=== PATIENT | male | born 1940 | race Caucasian/White ===

== ENCOUNTER 2017-09-18 15:05 | Observation (INO) ==
[2017-09-18] MEDS ORDERED: ONDANSETRON 4 MG/2 ML VIAL IV STA (15:25)
[2017-09-18] MEDS ORDERED: SODIUM CHLORIDE 0.9% 1,000 ML IV STA (15:25)
[2017-09-18] MEDS ORDERED: ONDANSETRON 4 MG/2 ML VIAL ONE (15:31)
[2017-09-18 15:48] LABS: Basophils % 0.2 % (0.0-0.8); Hematocrit 39.1 VOL% (42.0-52.0); Immature Granulocytes % 0.4 %; Immature Granulocytes Absolute 0.06 #; Lymphocytes # 0.4 10*3/uL (1.4-4.0); Lymphocytes % 2.3 % (21.2-54.2); Mean Corpuscular HGB Conc 33.2 GM/DL (32-36); Mean Corpuscular Hemoglobin 30 PG (27-34); Mean Corpuscular Volume 90.9 FL (87-102); Mean Platelet Volume 10.4 FL (9.6-12.0); Monocytes # 0.8 10*3/uL (0.11-0.8); Monocytes % 5.2 % (1.7-12.7); Neutrophils # 14.3 10*3/uL (1.4-7.4); Neutrophils % 91.9 % (38.7-73.9); Platelet Count 160 T/CUMM (130-400); Red Cell Distribution Width 13.6 % (9.3-17.3); White Blood Count 15.5 T/CUMM (4-12)
[2017-09-18 16:09] LABS: Albumin 3.2 G/DL (3.4-5.0); Bilirubin,Total 0.9 MG/DL (0.2-1.0); Calcium 8.3 MG/DL (8.5-10.1); Osmolality,Calculated 288.5 MOS/KG (273-304); Potassium 4.5 MMOL/L (3.5-5.1); Total Protein 6.9 G/DL (6.4-8.3)
[2017-09-18] MEDS ORDERED: LIDOCAINE 1% 20 ML VIAL MISC INJ STA (17:10)
[2017-09-18 17:44] LABS: Band Neutrophils 5 % (0-10); Lymphocytes 3 % (20-55); Platelet Estimate Normal; Segmented Neutrophils 87 % (50-85); Total Cells Counted 100
[2017-09-18 17:48] LABS: Apearance,Urine Slightly Hazy (Clear); Bilirubin,Urine Negative (Negative); Blood, Urine Negative (Negative); Glucose,Urine (UA) Negative (Negative); Ketones,Urine Negative (Negative); Mucus,Urine Moderate /LPF (Occasional); Nitrite,Urine Negative (Negative); Protein,Urine Negative; RBC,Urine 4 /HPF (0-4); Squamous Epithelial Cell,Urine Occasional /HPF (0-10); Urine Color Yellow (Yellow); Urine Specific Gravity 1.027 (1.001-1.035); Urine Urobilinogen < 2.0 EU/DL (0.2-1.0); WBC,Urine 4 /HPF (0-6)
[2017-09-18] MEDS ORDERED: ACETAMINOPHEN 325 MG TABLET PO PRN (18:53)
[2017-09-18] MEDS ORDERED: ONDANSETRON 4 MG/2 ML VIAL IV PRN (18:53)
[2017-09-18] MEDS ORDERED: FUROSEMIDE 40 MG TABLET PO PRN (19:08)
[2017-09-18] MEDS ORDERED: ALBUTEROL 2.5 MG/3 ML NEB RESP TX PRN (19:15)
[2017-09-18] MEDS: CIPROFLOXACIN INJ 400 MG in PREMIX 1 EACH IV SCH (20:42)
[2017-09-18] MEDS: SODIUM CHLORIDE 0.9% 1,000 ML IV SCH (20:42)
[2017-09-18] MEDS: SODIUM CHLORIDE 0.65% NASAL SPRAY 45 ML BOTTLE BOTH NARES SCH (20:43)
[2017-09-18] MEDS: BENZONATATE 100 MG CAPSULE PO SCH (20:43)
[2017-09-18] MEDS: TAMSULOSIN 0.4 MG CAPSULE PO SCH (20:43)
[2017-09-18] MEDS: ROSUVASTATIN 10 MG TABLET PO SCH (20:43)
[2017-09-18] MEDS: RIVAROXABAN 20 MG TABLET PO SCH (20:43)
[2017-09-18] MEDS: PANTOPRAZOLE 40 MG TABLET PO SCH (20:43)
[2017-09-18] MEDS: SERTRALINE 100 MG TABLET PO SCH (20:43)
[2017-09-18] MEDS: ZALEPLON 5 MG CAPSULE PO SCH (20:43)
[2017-09-18] MEDS: FLECAINIDE 50 MG TABLET PO SCH (20:44)
[2017-09-18] MEDS: metroNIDAZOLE INJ 500 MG in PREMIX 1 EACH IV SCH (22:49)
[2017-09-19 06:32] LABS: Basophils % 0.2 % (0.0-0.8); Eosinophils # 0.2 10*3/uL (0.0-0.87); Eosinophils % 1.9 % (0.00-10.9); Hematocrit 33.6 VOL% (42.0-52.0); Hemoglobin 11.3 GM/DL (14.0-18.0); Immature Granulocytes % 0.2 %; Immature Granulocytes Absolute 0.02 #; Lymphocytes # 1.1 10*3/uL (1.4-4.0); Lymphocytes % 11.5 % (21.2-54.2); Mean Corpuscular HGB Conc 33.6 GM/DL (32-36); Mean Corpuscular Hemoglobin 30 PG (27-34); Mean Corpuscular Volume 90.1 FL (87-102); Mean Platelet Volume 11.1 FL (9.6-12.0); Monocytes # 0.8 10*3/uL (0.11-0.8); Monocytes % 8.6 % (1.7-12.7); Neutrophils # 7.2 10*3/uL (1.4-7.4); Neutrophils % 77.6 % (38.7-73.9); Platelet Count 144 T/CUMM (130-400); Red Blood Count 3.73 MC/CUMM (3.8-5.5); Red Cell Distribution Width 13.6 % (9.3-17.3); White Blood Count 9.3 T/CUMM (4-12)
[2017-09-19 06:59] LABS: Band Neutrophils 1 % (0-10); Eosinophils 2 % (0-10); Lymphocytes 17 % (20-55); Microcytosis Slight; Segmented Neutrophils 75 % (50-85); Total Cells Counted 100
[2017-09-19 07:00] LABS: Ovalocytes Slight; Platelet Estimate Adequate
[2017-09-19 07:10] LABS: Albumin 2.9 G/DL (3.4-5.0); Bilirubin,Total 1.4 MG/DL (0.2-1.0); Calcium 7.5 MG/DL (8.5-10.1); Osmolality,Calculated 289.3 MOS/KG (273-304); Potassium 3.6 MMOL/L (3.5-5.1); Total Protein 6.1 G/DL (6.4-8.3)
[2017-09-19] MEDS ORDERED: FUROSEMIDE 20 MG/2 ML VIAL IV SCH (09:00)
[2017-09-19] MEDS: metroNIDAZOLE INJ 500 MG in PREMIX 1 EACH IV SCH ×2 (09:36→20:11)
[2017-09-19] MEDS: CIPROFLOXACIN INJ 400 MG in PREMIX 1 EACH IV SCH (09:36)
[2017-09-19] MEDS: SODIUM CHLORIDE 0.9% 1,000 ML IV SCH (09:37)
[2017-09-19] MEDS: CHOLECALCIFEROL 1,000 UNIT TABLET PO SCH (09:38)
[2017-09-19] MEDS: DIGOXIN 0.25 MG TABLET PO SCH (09:38)
[2017-09-19] MEDS: GABAPENTIN 600 MG TABLET PO SCH (09:38)
[2017-09-19] MEDS: SPIRONOLACTONE 25 MG TABLET PO SCH (09:38)
[2017-09-19] MEDS: CALCIUM (CARBONATE) 600 MG TABLET PO SCH (09:39)
[2017-09-19] MEDS: MULTIVITAMIN (CENTRUM) TABLET PO SCH (09:39)
[2017-09-19] MEDS: CYANOCOBALAMIN 500 MCG TABLET PO SCH (09:39)
[2017-09-19] MEDS: PANTOPRAZOLE 40 MG TABLET PO SCH ×2 (09:39→20:13)
[2017-09-19] MEDS: POTASSIUM CHLORIDE 10 MEQ TABLET PO SCH (09:39)
[2017-09-19] MEDS: BENZONATATE 100 MG CAPSULE PO SCH ×2 (09:39→20:13)
[2017-09-19] MEDS: TAMSULOSIN 0.4 MG CAPSULE PO SCH ×2 (09:39→20:12)
[2017-09-19] MEDS: SODIUM CHLORIDE 0.65% NASAL SPRAY 45 ML BOTTLE BOTH NARES SCH ×2 (09:40→20:13)
[2017-09-19] MEDS: FINASTERIDE 5 MG TABLET PO SCH (09:40)
[2017-09-19] MEDS: FLECAINIDE 50 MG TABLET PO SCH ×2 (09:40→20:12)
[2017-09-19] MEDS: ASCORBIC ACID 500 MG TABLET PO SCH (09:40)
[2017-09-19] MEDS: OMEGA 3 ACID ETHYL ESTERS 1 GM CAPSULE PO SCH (09:40)
[2017-09-19] MEDS ORDERED: GABAPENTIN 600 MG TABLET PO SCH (19:00)
[2017-09-19] MEDS: SERTRALINE 100 MG TABLET PO SCH (20:11)
[2017-09-19] MEDS: ZALEPLON 5 MG CAPSULE PO SCH (20:12)
[2017-09-19] MEDS: ROSUVASTATIN 10 MG TABLET PO SCH (20:12)
[2017-09-19] MEDS: RIVAROXABAN 20 MG TABLET PO SCH (20:13)
[2017-09-19] MEDS: CHOLESTYRAMINE 4 GM PACK PO SCH (20:13)
[2017-09-20 05:25] LABS: Basophils % 0.4 % (0.0-0.8); Eosinophils # 0.6 10*3/uL (0.0-0.87); Hematocrit 32.7 VOL% (42.0-52.0); Hemoglobin 10.8 GM/DL (14.0-18.0); Immature Granulocytes % 0.6 %; Immature Granulocytes Absolute 0.04 #; Lymphocytes % 27.2 % (21.2-54.2); Mean Corpuscular Hemoglobin 30 PG (27-34); Mean Corpuscular Volume 90.3 FL (87-102); Mean Platelet Volume 10.2 FL (9.6-12.0); Monocytes # 0.9 10*3/uL (0.11-0.8); Monocytes % 12.7 % (1.7-12.7); Neutrophils # 3.7 10*3/uL (1.4-7.4); Neutrophils % 51.1 % (38.7-73.9); Platelet Count 128 T/CUMM (130-400); Red Blood Count 3.62 MC/CUMM (3.8-5.5); Red Cell Distribution Width 13.7 % (9.3-17.3); White Blood Count 7.2 T/CUMM (4-12)
[2017-09-20 05:54] LABS: Albumin 2.7 G/DL (3.4-5.0); Bilirubin,Total 0.9 MG/DL (0.2-1.0); Calcium 7.7 MG/DL (8.5-10.1); Osmolality,Calculated 287.8 MOS/KG (273-304); Potassium 3.6 MMOL/L (3.5-5.1); Total Protein 5.7 G/DL (6.4-8.3)
[2017-09-20] MEDS: OMEGA 3 ACID ETHYL ESTERS 1 GM CAPSULE PO SCH (08:57)
[2017-09-20] MEDS: CHOLECALCIFEROL 1,000 UNIT TABLET PO SCH (08:58)
[2017-09-20] MEDS: DIGOXIN 0.25 MG TABLET PO SCH (08:58)
[2017-09-20] MEDS ORDERED: FUROSEMIDE 40 MG TABLET PO SCH (09:00)
[2017-09-20] MEDS: FLECAINIDE 50 MG TABLET PO SCH (09:00)
[2017-09-20] MEDS: GABAPENTIN 600 MG TABLET PO SCH (09:00)
[2017-09-20] MEDS: CALCIUM (CARBONATE) 600 MG TABLET PO SCH (09:01)
[2017-09-20] MEDS: MULTIVITAMIN (CENTRUM) TABLET PO SCH (09:01)
[2017-09-20] MEDS: FINASTERIDE 5 MG TABLET PO SCH (09:01)
[2017-09-20] MEDS: POTASSIUM CHLORIDE 10 MEQ TABLET PO SCH (09:01)
[2017-09-20] MEDS: ASCORBIC ACID 500 MG TABLET PO SCH (09:01)
[2017-09-20] MEDS: PANTOPRAZOLE 40 MG TABLET PO SCH (09:01)
[2017-09-20] MEDS: TAMSULOSIN 0.4 MG CAPSULE PO SCH (09:02)
[2017-09-20] MEDS: SPIRONOLACTONE 25 MG TABLET PO SCH (09:02)
[2017-09-20] MEDS: CYANOCOBALAMIN 500 MCG TABLET PO SCH (09:02)
[2017-09-20] MEDS: metroNIDAZOLE INJ 500 MG in PREMIX 1 EACH IV SCH (09:08)
[2017-09-20] MEDS: SODIUM CHLORIDE 0.65% NASAL SPRAY 45 ML BOTTLE BOTH NARES SCH (09:08)
[2017-09-20] MEDS: BENZONATATE 100 MG CAPSULE PO SCH (09:08)
[2017-09-20] MEDS: CHOLESTYRAMINE 4 GM PACK PO SCH (09:08)
[2017-09-20 11:41] VITALS: BP 103/65
== END 2017-09-20 13:59 | disposition home or self-care (01) ==
LOC: N.EDINP 15:05 → N.ED 15:05 → N.5E 18:43
PROVIDERS: ADMIT Internal Medicine; ATTEND Internal Medicine

== ENCOUNTER 2018-05-13 08:59 | Inpatient (IN) ==
[2018-05-13] MEDS ORDERED: ONDANSETRON 4 MG/2 ML VIAL IV STA (09:29)
[2018-05-13 09:44] LABS: Basophils % 0.4 % (0.0-0.8); Eosinophils # 0.5 10*3/uL (0.0-0.87); Eosinophils % 4.7 % (0.00-10.9); Hematocrit 34.9 VOL% (42.0-52.0); Hemoglobin 11.4 GM/DL (14.0-18.0); Immature Granulocytes % 0.3 %; Immature Granulocytes Absolute 0.03 #; Lymphocytes # 1.1 10*3/uL (1.4-4.0); Lymphocytes % 11.5 % (21.2-54.2); Mean Corpuscular HGB Conc 32.7 GM/DL (32-36); Mean Corpuscular Hemoglobin 30 PG (27-34); Mean Corpuscular Volume 92.1 FL (87-102); Mean Platelet Volume 10.3 FL (9.6-12.0); Monocytes # 0.6 10*3/uL (0.11-0.8); Monocytes % 6.4 % (1.7-12.7); Neutrophils # 7.5 10*3/uL (1.4-7.4); Neutrophils % 76.7 % (38.7-73.9); Platelet Count 156 T/CUMM (130-400); Red Blood Count 3.79 MC/CUMM (3.8-5.5); Red Cell Distribution Width 14.1 % (9.3-17.3); White Blood Count 9.8 T/CUMM (4-12)
[2018-05-13 10:23] LABS: Albumin 3.2 G/DL (3.4-5.0); Bilirubin,Total 0.8 MG/DL (0.2-1.0); Calcium 8.1 MG/DL (8.5-10.1); Osmolality,Calculated 284.4 MOS/KG (273-304); Potassium 4.4 MMOL/L (3.5-5.1); Total Protein 6.7 G/DL (6.4-8.3)
[2018-05-13 10:35] LABS: Apearance,Urine CLEAR (Clear); Bilirubin,Urine Negative (Negative); Blood, Urine Negative (Negative); Glucose,Urine (UA) Negative (Negative); Ketones,Urine Negative (Negative); Mucus,Urine Occasional /LPF (Occasional); Nitrite,Urine Negative (Negative); Protein,Urine Negative; RBC,Urine 3 /HPF (0-4); Squamous Epithelial Cell,Urine Occasional /HPF (0-10); Urine Color Yellow (Yellow); Urine Specific Gravity 1.025 (1.001-1.035); Urine Urobilinogen < 2.0 EU/DL (0.2-1.0); WBC,Urine 1 /HPF (0-6)
[2018-05-13 16:11] LABS: INR 1.2; PT Patient Result 12.6 SECS; Partial Thromboplastin Time 30.3 SECS (0-40)
[2018-05-13] MEDS ORDERED: ONDANSETRON 4 MG/2 ML VIAL IV PRN (16:22)
[2018-05-13] MEDS ORDERED: ACETAMINOPHEN 325 MG TABLET PO PRN (16:22)
[2018-05-13] MEDS ORDERED: SODIUM CHLORIDE 0.65% NASAL SPRAY 45 ML BOTTLE BOTH NARES PRN (16:42)
[2018-05-13] MEDS ORDERED: BENZONATATE 100 MG CAPSULE PO PRN (16:42)
[2018-05-13] MEDS ORDERED: ALBUTEROL 2.5 MG/3 ML NEB RESP TX PRN (16:42)
[2018-05-13] MEDS: cefOXitin 2,000 MG in SYRINGE 1 EACH IV SCH ×2 (17:39→22:40)
[2018-05-13] MEDS: METOPROLOL SUCCINATE XL 50 MG TABLET PO SCH (17:39)
[2018-05-13] MEDS: ENOXAPARIN 100 MG/ML SYRINGE SUBCUT SCH (17:39)
[2018-05-13] MEDS: SODIUM CHLORIDE 0.45% 1,000 ML IV SCH (17:43)
[2018-05-13] MEDS: MONTELUKAST 10 MG TABLET PO SCH (20:48)
[2018-05-13] MEDS: DILTIAZEM 60 MG TABLET PO SCH (20:49)
[2018-05-13] MEDS: GABAPENTIN 600 MG TABLET PO SCH (20:49)
[2018-05-13] MEDS: ROSUVASTATIN 10 MG TABLET PO SCH (20:49)
[2018-05-13] MEDS: ZALEPLON 5 MG CAPSULE PO SCH (20:50)
[2018-05-13] MEDS: SERTRALINE 100 MG TABLET PO SCH (20:56)
[2018-05-13] MEDS: TAMSULOSIN 0.4 MG CAPSULE PO SCH (20:56)
[2018-05-13] MEDS ORDERED: FLECAINIDE 50 MG TABLET PO SCH (21:00)
[2018-05-13] MEDS ORDERED: DILTIAZEM 60 MG TABLET PO SCH (21:00)
[2018-05-14] MEDS: SODIUM CHLORIDE 0.45% 1,000 ML IV SCH ×2 (00:25→15:45)
[2018-05-14 04:33] LABS: Basophils % 0.5 % (0.0-0.8); Eosinophils # 0.6 10*3/uL (0.0-0.87); Eosinophils % 7.5 % (0.00-10.9); Hematocrit 33.8 VOL% (42.0-52.0); Hemoglobin 10.8 GM/DL (14.0-18.0); Immature Granulocytes % 0.1 %; Immature Granulocytes Absolute 0.01 #; Lymphocytes # 1.8 10*3/uL (1.4-4.0); Lymphocytes % 22.5 % (21.2-54.2); Mean Corpuscular Hemoglobin 30 PG (27-34); Mean Corpuscular Volume 93.6 FL (87-102); Monocytes # 0.6 10*3/uL (0.11-0.8); Monocytes % 7.5 % (1.7-12.7); Neutrophils % 61.9 % (38.7-73.9); Platelet Count 145 T/CUMM (130-400); Red Blood Count 3.61 MC/CUMM (3.8-5.5)
[2018-05-14 05:03] LABS: Albumin 2.9 G/DL (3.4-5.0); Bilirubin,Total 1.3 MG/DL (0.2-1.0); Calcium 7.9 MG/DL (8.5-10.1); Osmolality,Calculated 287.3 MOS/KG (273-304); Potassium 4.2 MMOL/L (3.5-5.1); Total Protein 6.6 G/DL (6.4-8.3)
[2018-05-14] MEDS: cefOXitin 2,000 MG in SYRINGE 1 EACH IV SCH ×4 (05:42→23:22)
[2018-05-14] MEDS: ENOXAPARIN 100 MG/ML SYRINGE SUBCUT SCH ×2 (05:46→17:17)
[2018-05-14] MEDS: DILTIAZEM 60 MG TABLET PO SCH ×3 (09:00→20:42)
[2018-05-14] MEDS: CALCIUM (CARBONATE) 600 MG TABLET PO SCH ×2 (09:00→16:02)
[2018-05-14] MEDS: SPIRONOLACTONE 25 MG TABLET PO SCH ×2 (09:00→15:58)
[2018-05-14] MEDS: TAMSULOSIN 0.4 MG CAPSULE PO SCH ×2 (09:00→20:41)
[2018-05-14] MEDS: GABAPENTIN 300 MG CAPSULE PO SCH ×2 (09:00→16:04)
[2018-05-14] MEDS: METOPROLOL SUCCINATE XL 50 MG TABLET PO SCH ×2 (09:00→16:03)
[2018-05-14] MEDS: POTASSIUM CHLORIDE 10 MEQ TABLET PO SCH ×2 (09:00→16:05)
[2018-05-14] MEDS: DIGOXIN 0.25 MG TABLET PO SCH ×2 (09:00→16:05)
[2018-05-14] MEDS: PANTOPRAZOLE 40 MG TABLET PO SCH ×2 (09:00→16:03)
[2018-05-14] MEDS: FUROSEMIDE 40 MG TABLET PO SCH ×2 (09:00→16:04)
[2018-05-14] MEDS: OMEGA 3 ACID ETHYL ESTERS 1 GM CAPSULE PO SCH ×2 (09:00→16:04)
[2018-05-14] MEDS: FINASTERIDE 5 MG TABLET PO SCH ×2 (09:00→16:03)
[2018-05-14] MEDS: SERTRALINE 100 MG TABLET PO SCH (20:41)
[2018-05-14] MEDS: GABAPENTIN 600 MG TABLET PO SCH (20:41)
[2018-05-14] MEDS: ROSUVASTATIN 10 MG TABLET PO SCH (20:41)
[2018-05-14] MEDS: ZALEPLON 5 MG CAPSULE PO SCH (20:42)
[2018-05-14] MEDS: MONTELUKAST 10 MG TABLET PO SCH (20:42)
[2018-05-15] MEDS: SODIUM CHLORIDE 0.45% 1,000 ML IV SCH ×2 (03:26→18:17)
[2018-05-15] MEDS: ENOXAPARIN 100 MG/ML SYRINGE SUBCUT SCH (06:17)
[2018-05-15] MEDS: cefOXitin 2,000 MG in SYRINGE 1 EACH IV SCH ×3 (06:18→18:26)
[2018-05-15] MEDS: DILTIAZEM 60 MG TABLET PO SCH ×3 (09:00→21:44)
[2018-05-15] MEDS: TAMSULOSIN 0.4 MG CAPSULE PO SCH ×2 (09:00→21:44)
[2018-05-15] MEDS: SPIRONOLACTONE 25 MG TABLET PO SCH (09:00)
[2018-05-15] MEDS: DIGOXIN 0.25 MG TABLET PO SCH (09:00)
[2018-05-15] MEDS: FINASTERIDE 5 MG TABLET PO SCH (09:00)
[2018-05-15] MEDS: CALCIUM (CARBONATE) 600 MG TABLET PO SCH (09:00)
[2018-05-15] MEDS: FUROSEMIDE 40 MG TABLET PO SCH (09:00)
[2018-05-15] MEDS: OMEGA 3 ACID ETHYL ESTERS 1 GM CAPSULE PO SCH (09:00)
[2018-05-15] MEDS: GABAPENTIN 300 MG CAPSULE PO SCH (09:00)
[2018-05-15 09:40] LABS: Bilirubin,Direct 0.18 MG/DL (0.0-0.20); Bilirubin,Indirect 0.6 MG/DL (0.0-1.0); Bilirubin,Total 0.8 MG/DL (0.2-1.0)
[2018-05-15] MEDS ORDERED: LIDOCAINE 1%/EPI INJ 20 ML VIAL ONE (13:03)
[2018-05-15] MEDS ORDERED: TISSUE ADHESIVE 1 EACH APPLICATOR TOP ONE (13:03)
[2018-05-15] MEDS ORDERED: INFLUENZA VIRUS VACCINE 0.5 ML SYRINGE IM ONE (13:07)
[2018-05-15] MEDS: METOPROLOL SUCCINATE XL 50 MG TABLET PO SCH (13:55)
[2018-05-15] MEDS: PANTOPRAZOLE 40 MG TABLET PO SCH (13:55)
[2018-05-15] MEDS: POTASSIUM CHLORIDE 10 MEQ TABLET PO SCH (13:55)
[2018-05-15] MEDS ORDERED: LEVALBUTEROL 1.25 MG/3 ML NEB RESP TX ONE ×2 (15:18→15:24)
[2018-05-15] MEDS ORDERED: METOPROLOL TARTRATE 5 MG/5 ML VIAL IV ONE (15:23)
[2018-05-15] MEDS ORDERED: PROPOFOL 200 MG/20 ML VIAL IV ONE (15:23)
[2018-05-15] MEDS ORDERED: SEVOFLURANE 1 UNIT/15 MINUTE INH ONE (15:23)
[2018-05-15] MEDS ORDERED: ONDANSETRON 4 MG/2 ML VIAL ONE (15:23)
[2018-05-15] MEDS ORDERED: DEXAMETHASONE 10 MG/1 ML VIAL ONE (15:23)
[2018-05-15] MEDS ORDERED: GLYCOPYRROLATE 0.4 MG/2 ML VIAL ONE (15:23)
[2018-05-15] MEDS ORDERED: SUCCINYLCHOLINE 200 MG/10 ML VIAL ONE (15:24)
[2018-05-15] MEDS ORDERED: ROCURONIUM 100 MG/10 ML VIAL IV ONE (15:24)
[2018-05-15] MEDS ORDERED: NEOSTIGMINE 10 MG/10 ML VIAL ONE (15:24)
[2018-05-15] MEDS: HYDROmorphone 2 MG/1 ML VIAL IV PRN ×4 (15:40→16:56)
[2018-05-15] MEDS ORDERED: HYDROmorphone 2 MG/1 ML VIAL ONE (15:40)
[2018-05-15] MEDS: MONTELUKAST 10 MG TABLET PO SCH (21:41)
[2018-05-15] MEDS: ROSUVASTATIN 10 MG TABLET PO SCH (21:43)
[2018-05-15] MEDS: SERTRALINE 100 MG TABLET PO SCH (21:44)
[2018-05-15] MEDS: GABAPENTIN 600 MG TABLET PO SCH (21:44)
[2018-05-15] MEDS: ZALEPLON 5 MG CAPSULE PO SCH (21:46)
[2018-05-16] MEDS: cefOXitin 2,000 MG in SYRINGE 1 EACH IV SCH ×4 (02:35→21:22)
[2018-05-16 04:48] LABS: Hematocrit 34.3 VOL% (42.0-52.0); Hemoglobin 11.3 GM/DL (14.0-18.0); Immature Granulocytes % 0.3 %; Immature Granulocytes Absolute 0.03 #; Lymphocytes # 0.6 10*3/uL (1.4-4.0); Lymphocytes % 6.6 % (21.2-54.2); Mean Corpuscular HGB Conc 32.9 GM/DL (32-36); Mean Corpuscular Hemoglobin 30 PG (27-34); Mean Corpuscular Volume 91.2 FL (87-102); Mean Platelet Volume 10.5 FL (9.6-12.0); Monocytes # 0.2 10*3/uL (0.11-0.8); Monocytes % 1.7 % (1.7-12.7); Neutrophils # 8.3 10*3/uL (1.4-7.4); Neutrophils % 91.4 % (38.7-73.9); Platelet Count 161 T/CUMM (130-400); Red Blood Count 3.76 MC/CUMM (3.8-5.5); Red Cell Distribution Width 13.9 % (9.3-17.3); White Blood Count 9.1 T/CUMM (4-12)
[2018-05-16 05:13] LABS: Calcium 8.1 MG/DL (8.5-10.1); Potassium 4.6 MMOL/L (3.5-5.1)
[2018-05-16 05:39] LABS: Hypochromasia 1+; Lymphocytes 10 % (20-55); Ovalocytes Slight; Platelet Estimate Adequate; Segmented Neutrophils 89 % (50-85); Total Cells Counted 100
[2018-05-16] MEDS: SODIUM CHLORIDE 0.45% 1,000 ML IV SCH (06:24)
[2018-05-16] MEDS ORDERED: LACTATED RINGERS 500 ML IV ONE (08:23)
[2018-05-16] MEDS ORDERED: INDOMETHACIN SUPP 50 MG SUPP RECTAL ONE (08:24)
[2018-05-16] MEDS: METOPROLOL SUCCINATE XL 50 MG TABLET PO SCH ×2 (08:48→21:28)
[2018-05-16] MEDS: DILTIAZEM 60 MG TABLET PO SCH ×3 (08:48→21:28)
[2018-05-16] MEDS: DIGOXIN 0.25 MG TABLET PO SCH (08:49)
[2018-05-16 09:04] LABS: PT Patient Result 11.1 SECS
[2018-05-16] MEDS: TAMSULOSIN 0.4 MG CAPSULE PO SCH ×2 (09:44→21:27)
[2018-05-16] MEDS: CALCIUM (CARBONATE) 600 MG TABLET PO SCH (09:44)
[2018-05-16] MEDS: ASPIRIN EC 81 MG TABLET PO SCH (09:44)
[2018-05-16] MEDS: SPIRONOLACTONE 25 MG TABLET PO SCH (09:44)
[2018-05-16] MEDS: POTASSIUM CHLORIDE 10 MEQ TABLET PO SCH (09:45)
[2018-05-16] MEDS: OMEGA 3 ACID ETHYL ESTERS 1 GM CAPSULE PO SCH (09:45)
[2018-05-16] MEDS: GABAPENTIN 300 MG CAPSULE PO SCH (09:45)
[2018-05-16] MEDS: PANTOPRAZOLE 40 MG TABLET PO SCH (09:46)
[2018-05-16] MEDS: FINASTERIDE 5 MG TABLET PO SCH (09:46)
[2018-05-16] MEDS ORDERED: fentaNYL 100 MCG/2 ML VIAL ONE (10:37)
[2018-05-16] MEDS ORDERED: PROPOFOL 200 MG/20 ML VIAL IV ONE (10:58)
[2018-05-16] MEDS ORDERED: ROCURONIUM 100 MG/10 ML VIAL IV ONE (10:58)
[2018-05-16] MEDS ORDERED: SUCCINYLCHOLINE 200 MG/10 ML VIAL ONE (10:58)
[2018-05-16] MEDS ORDERED: LIDOCAINE 100 MG/5 ML SYRINGE ONE (10:58)
[2018-05-16] MEDS ORDERED: SEVOFLURANE 1 UNIT/15 MINUTE INH ONE (13:34)
[2018-05-16] MEDS ORDERED: RIVAROXABAN 20 MG TABLET PO SCH ×2 (17:00)
[2018-05-16] MEDS: MONTELUKAST 10 MG TABLET PO SCH (21:27)
[2018-05-16] MEDS: GABAPENTIN 600 MG TABLET PO SCH (21:27)
[2018-05-16] MEDS: ROSUVASTATIN 10 MG TABLET PO SCH (21:28)
[2018-05-16] MEDS: ZALEPLON 5 MG CAPSULE PO SCH (21:28)
[2018-05-16] MEDS: SERTRALINE 100 MG TABLET PO SCH (21:28)
[2018-05-17] MEDS: cefOXitin 2,000 MG in SYRINGE 1 EACH IV SCH ×2 (03:34→08:42)
[2018-05-17] MEDS: SODIUM CHLORIDE 0.45% 1,000 ML IV SCH ×2 (03:36→03:37)
[2018-05-17 06:07] LABS: Basophils % 0.1 % (0.0-0.8); Eosinophils % 0.2 % (0.00-10.9); Hematocrit 33.2 VOL% (42.0-52.0); Hemoglobin 10.6 GM/DL (14.0-18.0); Immature Granulocytes % 0.3 %; Immature Granulocytes Absolute 0.03 #; Lymphocytes # 1.1 10*3/uL (1.4-4.0); Lymphocytes % 9.6 % (21.2-54.2); Mean Corpuscular HGB Conc 31.9 GM/DL (32-36); Mean Corpuscular Hemoglobin 30 PG (27-34); Mean Corpuscular Volume 93.8 FL (87-102); Mean Platelet Volume 11.1 FL (9.6-12.0); Monocytes % 8.3 % (1.7-12.7); Neutrophils # 9.7 10*3/uL (1.4-7.4); Neutrophils % 81.5 % (38.7-73.9); Platelet Count 166 T/CUMM (130-400); Red Blood Count 3.54 MC/CUMM (3.8-5.5); Red Cell Distribution Width 14.1 % (9.3-17.3); White Blood Count 11.9 T/CUMM (4-12)
[2018-05-17 06:20] LABS: Albumin 2.9 G/DL (3.4-5.0); Bilirubin,Total 1.7 MG/DL (0.2-1.0); Calcium 7.9 MG/DL (8.5-10.1); Osmolality,Calculated 287.1 MOS/KG (273-304); Potassium 4.2 MMOL/L (3.5-5.1); Total Protein 6.6 G/DL (6.4-8.3)
[2018-05-17] MEDS: DIGOXIN 0.25 MG TABLET PO SCH (08:39)
[2018-05-17] MEDS: DILTIAZEM 60 MG TABLET PO SCH (08:39)
[2018-05-17] MEDS: SPIRONOLACTONE 25 MG TABLET PO SCH (08:40)
[2018-05-17] MEDS: ASPIRIN EC 81 MG TABLET PO SCH (08:40)
[2018-05-17] MEDS: FINASTERIDE 5 MG TABLET PO SCH (08:40)
[2018-05-17] MEDS: METOPROLOL SUCCINATE XL 50 MG TABLET PO SCH (08:41)
[2018-05-17] MEDS: PANTOPRAZOLE 40 MG TABLET PO SCH (08:41)
[2018-05-17] MEDS: OMEGA 3 ACID ETHYL ESTERS 1 GM CAPSULE PO SCH (08:41)
[2018-05-17] MEDS: GABAPENTIN 300 MG CAPSULE PO SCH (08:41)
[2018-05-17] MEDS: POTASSIUM CHLORIDE 10 MEQ TABLET PO SCH (08:41)
[2018-05-17] MEDS: TAMSULOSIN 0.4 MG CAPSULE PO SCH (08:41)
[2018-05-17] MEDS: CALCIUM (CARBONATE) 600 MG TABLET PO SCH (08:41)
[2018-05-17 10:32] VITALS: BP 97/53
== END 2018-05-17 11:28 | disposition home or self-care (01) | DRG 418 ==
LOC: N.EDINP 08:59 → N.ED 08:59 → N.3E 16:07
PROVIDERS: ADMIT Surgery; ATTEND Surgery
PROC: LAPCHOL (2018-05-15 14:16)
PROC: ERCPWSP (ICD-10-PCS; 2018-05-16 10:00)

== ENCOUNTER 2018-05-22 16:56 | Inpatient (IN) ==
[2018-05-22 18:10] LABS: Apearance,Urine CLEAR (Clear); Blood, Urine Negative (Negative); Glucose,Urine (UA) Negative (Negative); Ketones,Urine Negative (Negative); Nitrite,Urine Negative (Negative); Protein,Urine Negative; RBC,Urine 2 /HPF (0-4); Squamous Epithelial Cell,Urine Occasional /HPF (0-10); Urine Specific Gravity 1.028 (1.001-1.035); WBC,Urine 3 /HPF (0-6)
[2018-05-22] MEDS ORDERED: SODIUM CHLORIDE 0.9% 500 ML IV STA (18:12)
[2018-05-22 18:16] LABS: Bilirubin,Urine Small mg/dL (Negative); Urine Color Yellow (Yellow)
[2018-05-22 18:21] LABS: Lactic Acid 0.9 MMOL/L (0.4-2.0)
[2018-05-22 18:22] LABS: Albumin 2.8 G/DL (3.4-5.0); Basophils % 0.1 % (0.0-0.8); Bilirubin,Total 2.8 MG/DL (0.2-1.0); Calcium 8.6 MG/DL (8.5-10.1); Eosinophils % 0.2 % (0.00-10.9); Hematocrit 33.5 VOL% (42.0-52.0); Immature Granulocytes % 0.3 %; Immature Granulocytes Absolute 0.05 #; Lymphocytes # 0.4 10*3/uL (1.4-4.0); Lymphocytes % 2.7 % (21.2-54.2); Mean Corpuscular HGB Conc 32.8 GM/DL (32-36); Mean Corpuscular Hemoglobin 30 PG (27-34); Mean Corpuscular Volume 91.3 FL (87-102); Mean Platelet Volume 10.4 FL (9.6-12.0); Monocytes # 0.9 10*3/uL (0.11-0.8); Monocytes % 5.7 % (1.7-12.7); Neutrophils # 14.1 10*3/uL (1.4-7.4); Platelet Count 171 T/CUMM (130-400); Potassium 4.3 MMOL/L (3.5-5.1); Red Blood Count 3.67 MC/CUMM (3.8-5.5); Total Protein 7.1 G/DL (6.4-8.3); White Blood Count 15.5 T/CUMM (4-12)
[2018-05-22 18:24] LABS: Lymphocytes 5 % (20-55); Segmented Neutrophils 93 % (50-85); Total Cells Counted 100
[2018-05-22 18:25] LABS: Platelet Estimate Adequate
[2018-05-22] MEDS ORDERED: metroNIDAZOLE INJ 500 MG in PREMIX 1 EACH IV STA (20:08)
[2018-05-22] MEDS ORDERED: LEVOFLOXACIN INJ 500 MG in PREMIX 1 EACH IV STA (20:08)
[2018-05-22] MEDS ORDERED: ONDANSETRON 4 MG/2 ML VIAL IV PRN (20:29)
[2018-05-22] MEDS: SODIUM CHLORIDE 0.45% 1,000 ML IV SCH (23:41)
[2018-05-23] MEDS: metroNIDAZOLE INJ 500 MG in PREMIX 1 EACH IV SCH ×5 (02:08→20:08)
[2018-05-23 05:55] LABS: Albumin 2.6 G/DL (3.4-5.0); Bilirubin,Total 2.4 MG/DL (0.2-1.0); Calcium 8.1 MG/DL (8.5-10.1); Osmolality,Calculated 273.1 MOS/KG (273-304); Total Protein 6.2 G/DL (6.4-8.3)
[2018-05-23] MEDS ORDERED: BENZONATATE 100 MG CAPSULE PO PRN (06:05)
[2018-05-23] MEDS ORDERED: ALBUTEROL 2.5 MG/3 ML NEB RESP TX PRN (06:05)
[2018-05-23] MEDS: SODIUM CHLORIDE 0.45% 1,000 ML IV SCH (06:22)
[2018-05-23 07:10] LABS: Basophils % 0.2 % (0.0-0.8); Eosinophils # 0.2 10*3/uL (0.0-0.87); Eosinophils % 1.7 % (0.00-10.9); Hematocrit 30.7 VOL% (42.0-52.0); Immature Granulocytes % 0.6 %; Immature Granulocytes Absolute 0.05 #; Lymphocytes # 0.6 10*3/uL (1.4-4.0); Lymphocytes % 6.7 % (21.2-54.2); Mean Corpuscular HGB Conc 32.6 GM/DL (32-36); Mean Corpuscular Hemoglobin 30 PG (27-34); Mean Corpuscular Volume 91.4 FL (87-102); Mean Platelet Volume 10.9 FL (9.6-12.0); Monocytes # 0.6 10*3/uL (0.11-0.8); Monocytes % 6.5 % (1.7-12.7); Neutrophils # 7.6 10*3/uL (1.4-7.4); Neutrophils % 84.3 % (38.7-73.9); Platelet Count 138 T/CUMM (130-400); Red Blood Count 3.36 MC/CUMM (3.8-5.5); Red Cell Distribution Width 14.2 % (9.3-17.3); White Blood Count 9.1 T/CUMM (4-12)
[2018-05-23] MEDS ORDERED: NON-FORMULARY MEDICATION (Potassium [Potassium] 99 MG) PO SCH (09:00)
[2018-05-23] MEDS: FLECAINIDE 50 MG TABLET PO SCH ×2 (09:32→20:09)
[2018-05-23] MEDS: DIGOXIN 0.25 MG TABLET PO SCH (09:33)
[2018-05-23] MEDS: PANTOPRAZOLE 40 MG TABLET PO SCH (09:33)
[2018-05-23] MEDS: GABAPENTIN 300 MG CAPSULE PO SCH (09:33)
[2018-05-23] MEDS: DILTIAZEM 60 MG TABLET PO SCH ×2 (09:33→20:13)
[2018-05-23] MEDS: FINASTERIDE 5 MG TABLET PO SCH (09:33)
[2018-05-23] MEDS: TAMSULOSIN 0.4 MG CAPSULE PO SCH ×2 (09:33→20:10)
[2018-05-23] MEDS: ENOXAPARIN 30 MG/0.3 ML SYRINGE SUBCUT SCH ×2 (09:34→20:08)
[2018-05-23] MEDS: ACETAMINOPHEN 325 MG TABLET PO PRN (12:15)
[2018-05-23] MEDS: MONTELUKAST 10 MG TABLET PO SCH (20:09)
[2018-05-23] MEDS: ZALEPLON 5 MG CAPSULE PO SCH (20:10)
[2018-05-23] MEDS: GABAPENTIN 600 MG TABLET PO SCH (20:10)
[2018-05-23] MEDS: SERTRALINE 100 MG TABLET PO SCH (20:10)
[2018-05-23] MEDS: LEVOFLOXACIN INJ 500 MG in PREMIX 1 EACH IV SCH (21:47)
[2018-05-24] MEDS: SODIUM CHLORIDE 0.45% 1,000 ML IV SCH ×2 (03:20)
[2018-05-24] MEDS: metroNIDAZOLE INJ 500 MG in PREMIX 1 EACH IV SCH ×3 (05:02→21:12)
[2018-05-24 05:59] LABS: Basophils % 0.2 % (0.0-0.8); Eosinophils # 0.2 10*3/uL (0.0-0.87); Eosinophils % 2.4 % (0.00-10.9); Hematocrit 30.4 VOL% (42.0-52.0); Hemoglobin 9.6 GM/DL (14.0-18.0); Immature Granulocytes % 0.5 %; Immature Granulocytes Absolute 0.03 #; Lymphocytes # 0.7 10*3/uL (1.4-4.0); Lymphocytes % 10.5 % (21.2-54.2); Mean Corpuscular HGB Conc 31.6 GM/DL (32-36); Mean Corpuscular Hemoglobin 29 PG (27-34); Mean Corpuscular Volume 92.4 FL (87-102); Mean Platelet Volume 10.8 FL (9.6-12.0); Monocytes # 0.5 10*3/uL (0.11-0.8); Monocytes % 8.4 % (1.7-12.7); Neutrophils # 4.8 10*3/uL (1.4-7.4); Platelet Count 122 T/CUMM (130-400); Red Blood Count 3.29 MC/CUMM (3.8-5.5); Red Cell Distribution Width 14.2 % (9.3-17.3); White Blood Count 6.2 T/CUMM (4-12)
[2018-05-24 06:27] LABS: Albumin 2.5 G/DL (3.4-5.0); Bilirubin,Total 1.4 MG/DL (0.2-1.0); Calcium 7.7 MG/DL (8.5-10.1); Osmolality,Calculated 277.7 MOS/KG (273-304); Total Protein 6.2 G/DL (6.4-8.3)
[2018-05-24] MEDS: PANTOPRAZOLE 40 MG TABLET PO SCH (08:31)
[2018-05-24] MEDS: ENOXAPARIN 30 MG/0.3 ML SYRINGE SUBCUT SCH ×2 (08:31→21:18)
[2018-05-24] MEDS: FLECAINIDE 50 MG TABLET PO SCH ×2 (08:31→21:18)
[2018-05-24] MEDS: TAMSULOSIN 0.4 MG CAPSULE PO SCH ×2 (08:31→21:18)
[2018-05-24] MEDS: DILTIAZEM 60 MG TABLET PO SCH ×2 (08:31→21:22)
[2018-05-24] MEDS: DIGOXIN 0.25 MG TABLET PO SCH (08:31)
[2018-05-24] MEDS: FINASTERIDE 5 MG TABLET PO SCH (08:31)
[2018-05-24] MEDS: GABAPENTIN 300 MG CAPSULE PO SCH (08:31)
[2018-05-24] MEDS: SERTRALINE 100 MG TABLET PO SCH (21:17)
[2018-05-24] MEDS: ZALEPLON 5 MG CAPSULE PO SCH (21:17)
[2018-05-24] MEDS: GABAPENTIN 600 MG TABLET PO SCH (21:17)
[2018-05-24] MEDS: ACETAMINOPHEN 325 MG TABLET PO PRN (21:17)
[2018-05-24] MEDS: MONTELUKAST 10 MG TABLET PO SCH (21:18)
[2018-05-24] MEDS: LEVOFLOXACIN INJ 500 MG in PREMIX 1 EACH IV SCH (22:25)
[2018-05-25] MEDS: SODIUM CHLORIDE 0.45% 1,000 ML IV SCH (02:30)
[2018-05-25] MEDS: metroNIDAZOLE INJ 500 MG in PREMIX 1 EACH IV SCH ×3 (04:25→20:35)
[2018-05-25 07:00] LABS: Albumin 2.2 G/DL (3.4-5.0); Bilirubin,Total 0.6 MG/DL (0.2-1.0); Calcium 7.7 MG/DL (8.5-10.1); Osmolality,Calculated 283.3 MOS/KG (273-304); Potassium 3.7 MMOL/L (3.5-5.1); Total Protein 5.8 G/DL (6.4-8.3)
[2018-05-25] MEDS: FLECAINIDE 50 MG TABLET PO SCH ×2 (09:29→21:50)
[2018-05-25] MEDS: ENOXAPARIN 30 MG/0.3 ML SYRINGE SUBCUT SCH ×2 (09:29→21:49)
[2018-05-25] MEDS: GABAPENTIN 300 MG CAPSULE PO SCH (09:30)
[2018-05-25] MEDS: TAMSULOSIN 0.4 MG CAPSULE PO SCH ×2 (09:30→21:49)
[2018-05-25] MEDS: DIGOXIN 0.25 MG TABLET PO SCH (09:30)
[2018-05-25] MEDS: PANTOPRAZOLE 40 MG TABLET PO SCH (09:30)
[2018-05-25] MEDS: FINASTERIDE 5 MG TABLET PO SCH (09:30)
[2018-05-25] MEDS: DILTIAZEM 60 MG TABLET PO SCH ×2 (09:30→21:49)
[2018-05-25] MEDS: ACETAMINOPHEN 325 MG TABLET PO PRN (09:36)
[2018-05-25] MEDS: LEVOFLOXACIN INJ 500 MG in PREMIX 1 EACH IV SCH (21:40)
[2018-05-25] MEDS: ZALEPLON 5 MG CAPSULE PO SCH (21:49)
[2018-05-25] MEDS: SERTRALINE 100 MG TABLET PO SCH (21:49)
[2018-05-25] MEDS: MONTELUKAST 10 MG TABLET PO SCH (21:49)
[2018-05-25] MEDS: GABAPENTIN 600 MG TABLET PO SCH (21:49)
[2018-05-26] MEDS: ACETAMINOPHEN 325 MG TABLET PO PRN (03:32)
[2018-05-26] MEDS: metroNIDAZOLE INJ 500 MG in PREMIX 1 EACH IV SCH (04:25)
[2018-05-26 05:38] LABS: Basophils % 0.2 % (0.0-0.8); Eosinophils # 0.3 10*3/uL (0.0-0.87); Eosinophils % 5.5 % (0.00-10.9); Hematocrit 28.5 VOL% (42.0-52.0); Hemoglobin 9.1 GM/DL (14.0-18.0); Immature Granulocytes % 0.5 %; Immature Granulocytes Absolute 0.03 #; Lymphocytes # 1.2 10*3/uL (1.4-4.0); Lymphocytes % 21.3 % (21.2-54.2); Mean Corpuscular HGB Conc 31.9 GM/DL (32-36); Mean Corpuscular Hemoglobin 30 PG (27-34); Mean Corpuscular Volume 92.5 FL (87-102); Mean Platelet Volume 10.8 FL (9.6-12.0); Monocytes # 0.6 10*3/uL (0.11-0.8); Monocytes % 9.8 % (1.7-12.7); Neutrophils # 3.5 10*3/uL (1.4-7.4); Neutrophils % 62.7 % (38.7-73.9); Platelet Count 132 T/CUMM (130-400); Red Blood Count 3.08 MC/CUMM (3.8-5.5); Red Cell Distribution Width 14.5 % (9.3-17.3); White Blood Count 5.6 T/CUMM (4-12)
[2018-05-26 06:01] LABS: Albumin 2.5 G/DL (3.4-5.0); Bilirubin,Total 0.8 MG/DL (0.2-1.0); Osmolality,Calculated 284.1 MOS/KG (273-304); Potassium 3.9 MMOL/L (3.5-5.1); Total Protein 6.1 G/DL (6.4-8.3)
[2018-05-26 07:53] VITALS: BP 120/65
[2018-05-26] MEDS: FLECAINIDE 50 MG TABLET PO SCH (09:11)
[2018-05-26] MEDS: ENOXAPARIN 30 MG/0.3 ML SYRINGE SUBCUT SCH (09:12)
[2018-05-26] MEDS: DIGOXIN 0.25 MG TABLET PO SCH (09:13)
[2018-05-26] MEDS: GABAPENTIN 300 MG CAPSULE PO SCH (09:13)
[2018-05-26] MEDS: TAMSULOSIN 0.4 MG CAPSULE PO SCH (09:13)
[2018-05-26] MEDS: PANTOPRAZOLE 40 MG TABLET PO SCH (09:13)
[2018-05-26] MEDS: FINASTERIDE 5 MG TABLET PO SCH (09:13)
[2018-05-26] MEDS: DILTIAZEM 60 MG TABLET PO SCH (09:13)
== END 2018-05-26 11:00 | disposition home or self-care (01) | DRG 442 ==
LOC: N.ED 16:56 → N.EDINP 20:29 → N.3E 21:09
PROVIDERS: ADMIT Surgery; ATTEND Surgery

== ENCOUNTER 2021-10-29 10:20 | Inpatient (IN) ==
[2021-10-29] MEDS ORDERED: ONDANSETRON 4 MG/2 ML VIAL IV ONE (10:55)
[2021-10-29] MEDS ORDERED: MORPHINE 2 MG/1 ML SYRINGE IV ONE (10:55)
[2021-10-29 10:57] LABS: Basophils % 0.4 % (0.0-0.8); Eosinophils # 0.6 10*3/uL (0.0-0.87); Eosinophils % 7.2 % (0.00-10.9); Hematocrit 33.7 VOL% (42.0-52.0); Hemoglobin 10.7 GM/DL (14.0-18.0); Immature Granulocytes % 0.5 %; Immature Granulocytes Absolute 0.04 #; Lymphocytes # 1.1 10*3/uL (1.4-4.0); Lymphocytes % 14.1 % (21.2-54.2); Mean Corpuscular HGB Conc 31.8 GM/DL (32-36); Mean Corpuscular Volume 92.1 FL (87-102); Mean Platelet Volume 10.3 FL (9.6-12.0); Monocytes # 0.7 10*3/uL (0.11-0.8); Monocytes % 8.3 % (1.7-12.7); Neutrophils % 69.5 % (38.7-73.9); Platelet Count 190 T/CUMM (130-400); Red Blood Count 3.66 MC/CUMM (3.8-5.5); Red Cell Distribution Width 13.8 % (9.3-17.3); White Blood Count 7.8 T/CUMM (4-12)
[2021-10-29 11:11] LABS: INR 1.1; PT Patient Result 12.4 SECS (10.5-12.0); Partial Thromboplastin Time 31.1 SECS (23.8-32.1)
[2021-10-29 11:22] LABS: Albumin 2.9 G/DL (3.4-5.0); Bilirubin,Total 0.5 MG/DL (0.20-1.00); Calcium 8.8 MG/DL (8.5-10.1); Osmolality,Calculated 280.5 MOS/KG (273-304); Potassium 4.5 MMOL/L (3.5-5.1); Total Protein 6.9 G/DL (6.4-8.2)
[2021-10-29] MEDS ORDERED: GLUCAGON 1 MG VIAL IM PRN (13:06)
[2021-10-29] MEDS ORDERED: ONDANSETRON 4 MG/2 ML VIAL IV PRN (14:01)
[2021-10-29] MEDS ORDERED: MORPHINE 2 MG/1 ML SYRINGE IV PRN ×2 (14:15→18:57)
[2021-10-29] MEDS ORDERED: HYDROmorphone 1 MG/1 ML SYRINGE IV STA (14:21)
[2021-10-29] MEDS ORDERED: DEXTROSE 10% 250 ML BAG IV PRN (14:21)
[2021-10-29] MEDS: SODIUM CHLORIDE 0.9% 1,000 ML IV SCH (14:33)
[2021-10-29] MEDS: FUROSEMIDE 40 MG TABLET PO SCH (18:17)
[2021-10-29] MEDS: ROSUVASTATIN 10 MG TABLET PO SCH (20:32)
[2021-10-29] MEDS: GABAPENTIN 600 MG TABLET PO SCH (20:32)
[2021-10-29] MEDS: SOTALOL 80 MG TABLET PO SCH (20:32)
[2021-10-29] MEDS: CALCIUM (CARBONATE) 500 MG TABLET PO SCH (20:32)
[2021-10-29] MEDS: SERTRALINE 100 MG TABLET PO SCH (20:33)
[2021-10-29] MEDS: CHOLECALCIFEROL 1,000 UNIT TABLET PO SCH (20:33)
[2021-10-29] MEDS: traZODone 50 MG TABLET PO SCH (20:33)
[2021-10-29] MEDS ORDERED: HYDROmorphone 1 MG/1 ML SYRINGE IV PRN (22:18)
[2021-10-30] MEDS: SODIUM CHLORIDE 0.9% 1,000 ML IV SCH ×2 (02:50→04:56)
[2021-10-30 05:47] LABS: Basophils % 0.3 % (0.0-0.8); Eosinophils # 0.6 10*3/uL (0.0-0.87); Eosinophils % 6.9 % (0.00-10.9); Hemoglobin 10.2 GM/DL (14.0-18.0); Immature Granulocytes % 0.2 %; Immature Granulocytes Absolute 0.02 #; Lymphocytes # 1.5 10*3/uL (1.4-4.0); Lymphocytes % 16.4 % (21.2-54.2); Mean Corpuscular HGB Conc 30.9 GM/DL (32-36); Mean Corpuscular Volume 92.2 FL (87-102); Mean Platelet Volume 10.6 FL (9.6-12.0); Monocytes # 0.8 10*3/uL (0.11-0.8); Monocytes % 9.4 % (1.7-12.7); Neutrophils % 66.8 % (38.7-73.9); Platelet Count 166 T/CUMM (130-400); Red Blood Count 3.58 MC/CUMM (3.8-5.5); Red Cell Distribution Width 13.8 % (9.3-17.3); White Blood Count 8.9 T/CUMM (4-12)
[2021-10-30 06:00] LABS: Calcium 8.3 MG/DL (8.5-10.1); Osmolality,Calculated 278.7 MOS/KG (273-304); Potassium 4.2 MMOL/L (3.5-5.1)
[2021-10-30] MEDS ORDERED: ceFAZolin 2,000 MG/50 ML DUPLEX IV ONE (06:00)
[2021-10-30] MEDS ORDERED: BACITRACIN OINT 0.9 GM PACK TOP ONE (11:23)
[2021-10-30] MEDS ORDERED: DEXMEDETOMIDINE 200 MCG/2 ML VIAL ONE (11:48)
[2021-10-30] MEDS ORDERED: LIDOCAINE 1% 5 ML VIAL ONE (11:48)
[2021-10-30] MEDS ORDERED: ROPIVACAINE 0.5% 30 ML VIAL ONE (11:48)
[2021-10-30] MEDS: SOTALOL 80 MG TABLET PO SCH ×2 (12:07→22:19)
[2021-10-30] MEDS: FUROSEMIDE 40 MG TABLET PO SCH ×2 (12:07→16:00)
[2021-10-30] MEDS: DILTIAZEM CD 120 MG CAPSULE PO SCH (12:07)
[2021-10-30] MEDS: FERROUS SULFATE 325 MG TABLET PO SCH (12:08)
[2021-10-30] MEDS: NON-FORMULARY MEDICATION (Cyanocobalamin (Vitamin B-12) [Vitamin B-12] 1,000 MCG tablet) PO SCH (12:08)
[2021-10-30] MEDS: GABAPENTIN 600 MG TABLET PO SCH ×2 (12:09→21:17)
[2021-10-30] MEDS: CHOLECALCIFEROL 1,000 UNIT TABLET PO SCH ×2 (12:09→21:17)
[2021-10-30] MEDS: ASCORBIC ACID 500 MG TABLET PO SCH (12:09)
[2021-10-30] MEDS: PANTOPRAZOLE 40 MG TABLET PO SCH (12:09)
[2021-10-30] MEDS ORDERED: fentaNYL 100 MCG/2 ML VIAL ONE (12:37)
[2021-10-30] MEDS ORDERED: LACTATED RINGERS 1,000 ML IV ONE (12:43)
[2021-10-30] MEDS ORDERED: DESFLURANE 1 UNIT/15 MINUTE INH ONE (12:43)
[2021-10-30] MEDS ORDERED: LIDOCAINE 2% 5 ML VIAL ONE (12:43)
[2021-10-30] MEDS ORDERED: ETOMIDATE 40 MG/20 ML VIAL IV ONE (12:43)
[2021-10-30] MEDS ORDERED: ALBUTEROL/IPRATROPIUM 3 ML NEB RESP TX PRN (12:47)
[2021-10-30] MEDS ORDERED: PHENYLEPHRINE 1 MG/10 ML SYRINGE IV ONE (12:55)
[2021-10-30] MEDS ORDERED: ONDANSETRON 4 MG/2 ML VIAL ONE (12:58)
[2021-10-30] MEDS ORDERED: HYDROmorphone 1 MG/1 ML SYRINGE IV PRN (14:03)
[2021-10-30] MEDS: TAMSULOSIN 0.4 MG CAPSULE PO SCH (16:00)
[2021-10-30] MEDS: CALCIUM (CARBONATE) 500 MG TABLET PO SCH ×2 (16:00→21:17)
[2021-10-30] MEDS: FINASTERIDE 5 MG TABLET PO SCH (16:00)
[2021-10-30] MEDS: ceFAZolin 2,000 MG/50 ML DUPLEX IV SCH (17:48)
[2021-10-30] MEDS: RIVAROXABAN 10 MG TABLET PO SCH (21:17)
[2021-10-30] MEDS: ROSUVASTATIN 10 MG TABLET PO SCH (21:17)
[2021-10-30] MEDS: traZODone 50 MG TABLET PO SCH (21:17)
[2021-10-30] MEDS: DOCUSATE SODIUM 100 MG CAPSULE PO SCH (21:17)
[2021-10-30] MEDS: SERTRALINE 100 MG TABLET PO SCH (21:18)
[2021-10-31] MEDS: ceFAZolin 2,000 MG/50 ML DUPLEX IV SCH (01:59)
[2021-10-31 04:47] LABS: Basophils % 0.1 % (0.0-0.8); Eosinophils % 0.1 % (0.00-10.9); Hematocrit 30.9 VOL% (42.0-52.0); Immature Granulocytes % 0.5 %; Immature Granulocytes Absolute 0.06 #; Lymphocytes # 0.8 10*3/uL (1.4-4.0); Lymphocytes % 6.9 % (21.2-54.2); Mean Corpuscular HGB Conc 32.4 GM/DL (32-36); Mean Corpuscular Volume 90.9 FL (87-102); Mean Platelet Volume 10.2 FL (9.6-12.0); Monocytes # 0.8 10*3/uL (0.11-0.8); Monocytes % 6.8 % (1.7-12.7); Neutrophils % 85.6 % (38.7-73.9); Platelet Count 148 T/CUMM (130-400); Red Cell Distribution Width 13.5 % (9.3-17.3); White Blood Count 11.4 T/CUMM (4-12)
[2021-10-31 05:05] LABS: Calcium 8.3 MG/DL (8.5-10.1); Osmolality,Calculated 280.7 MOS/KG (273-304); Potassium 3.9 MMOL/L (3.5-5.1)
[2021-10-31] MEDS: GABAPENTIN 600 MG TABLET PO SCH ×2 (08:32→20:14)
[2021-10-31] MEDS: DOCUSATE SODIUM 100 MG CAPSULE PO SCH ×2 (08:32→20:14)
[2021-10-31] MEDS: FINASTERIDE 5 MG TABLET PO SCH (08:33)
[2021-10-31] MEDS: CALCIUM (CARBONATE) 500 MG TABLET PO SCH ×2 (08:33→20:12)
[2021-10-31] MEDS: CHOLECALCIFEROL 1,000 UNIT TABLET PO SCH ×2 (08:33→20:12)
[2021-10-31] MEDS: PANTOPRAZOLE 40 MG TABLET PO SCH (08:33)
[2021-10-31] MEDS: FUROSEMIDE 40 MG TABLET PO SCH ×2 (08:33→16:14)
[2021-10-31] MEDS: TAMSULOSIN 0.4 MG CAPSULE PO SCH (08:33)
[2021-10-31] MEDS: FERROUS SULFATE 325 MG TABLET PO SCH (08:33)
[2021-10-31] MEDS: ASCORBIC ACID 500 MG TABLET PO SCH (08:33)
[2021-10-31] MEDS: NON-FORMULARY MEDICATION (Cyanocobalamin (Vitamin B-12) [Vitamin B-12] 1,000 MCG tablet) PO SCH (08:34)
[2021-10-31] MEDS: DILTIAZEM CD 120 MG CAPSULE PO SCH (08:38)
[2021-10-31] MEDS: SOTALOL 80 MG TABLET PO SCH ×2 (10:39→20:13)
[2021-10-31] MEDS: SERTRALINE 100 MG TABLET PO SCH (20:12)
[2021-10-31] MEDS: ROSUVASTATIN 10 MG TABLET PO SCH (20:12)
[2021-10-31] MEDS: RIVAROXABAN 10 MG TABLET PO SCH (20:13)
[2021-10-31] MEDS: traZODone 50 MG TABLET PO SCH (20:14)
[2021-11-01 05:23] LABS: Basophils % 0.3 % (0.0-0.8); Eosinophils # 0.6 10*3/uL (0.0-0.87); Eosinophils % 5.3 % (0.00-10.9); Hematocrit 31.5 VOL% (42.0-52.0); Hemoglobin 10.1 GM/DL (14.0-18.0); Immature Granulocytes % 0.4 %; Immature Granulocytes Absolute 0.04 #; Lymphocytes # 1.4 10*3/uL (1.4-4.0); Lymphocytes % 13.4 % (21.2-54.2); Mean Corpuscular HGB Conc 32.1 GM/DL (32-36); Mean Corpuscular Volume 91.3 FL (87-102); Mean Platelet Volume 10.9 FL (9.6-12.0); Monocytes # 0.9 10*3/uL (0.11-0.8); Neutrophils % 72.6 % (38.7-73.9); Platelet Count 175 T/CUMM (130-400); Red Blood Count 3.45 MC/CUMM (3.8-5.5); Red Cell Distribution Width 13.6 % (9.3-17.3); White Blood Count 10.6 T/CUMM (4-12)
[2021-11-01 05:36] LABS: Calcium 8.8 MG/DL (8.5-10.1); Potassium 3.9 MMOL/L (3.5-5.1)
[2021-11-01] MEDS: SOTALOL 80 MG TABLET PO SCH ×2 (09:07→21:05)
[2021-11-01] MEDS: CHOLECALCIFEROL 1,000 UNIT TABLET PO SCH ×2 (09:07→21:05)
[2021-11-01] MEDS: DOCUSATE SODIUM 100 MG CAPSULE PO SCH ×2 (09:07→21:05)
[2021-11-01] MEDS: FUROSEMIDE 40 MG TABLET PO SCH ×2 (09:07→17:20)
[2021-11-01] MEDS: FINASTERIDE 5 MG TABLET PO SCH (09:07)
[2021-11-01] MEDS: CALCIUM (CARBONATE) 500 MG TABLET PO SCH ×2 (09:07→21:05)
[2021-11-01] MEDS: ASCORBIC ACID 500 MG TABLET PO SCH (09:08)
[2021-11-01] MEDS: TAMSULOSIN 0.4 MG CAPSULE PO SCH (09:08)
[2021-11-01] MEDS: FERROUS SULFATE 325 MG TABLET PO SCH (09:08)
[2021-11-01] MEDS: DILTIAZEM CD 120 MG CAPSULE PO SCH (09:08)
[2021-11-01] MEDS: MAGNESIUM HYDROXIDE SUSP 30 ML UDCUP PO PRN ×2 (09:08→09:09)
[2021-11-01] MEDS: PANTOPRAZOLE 40 MG TABLET PO SCH (09:08)
[2021-11-01] MEDS: GABAPENTIN 600 MG TABLET PO SCH ×2 (09:08→21:05)
[2021-11-01] MEDS: NON-FORMULARY MEDICATION (Cyanocobalamin (Vitamin B-12) [Vitamin B-12] 1,000 MCG tablet) PO SCH (10:12)
[2021-11-01] MEDS: ROSUVASTATIN 10 MG TABLET PO SCH (21:04)
[2021-11-01] MEDS: traZODone 50 MG TABLET PO SCH (21:05)
[2021-11-01] MEDS: SERTRALINE 100 MG TABLET PO SCH (21:06)
[2021-11-01] MEDS: RIVAROXABAN 10 MG TABLET PO SCH (21:06)
[2021-11-02 05:18] LABS: Basophils % 0.3 % (0.0-0.8); Eosinophils # 0.7 10*3/uL (0.0-0.87); Eosinophils % 5.6 % (0.00-10.9); Hematocrit 31.8 VOL% (42.0-52.0); Hemoglobin 10.2 GM/DL (14.0-18.0); Immature Granulocytes % 0.4 %; Immature Granulocytes Absolute 0.05 #; Lymphocytes # 1.2 10*3/uL (1.4-4.0); Lymphocytes % 10.1 % (21.2-54.2); Mean Corpuscular HGB Conc 32.1 GM/DL (32-36); Mean Corpuscular Volume 91.1 FL (87-102); Mean Platelet Volume 10.5 FL (9.6-12.0); Monocytes % 8.2 % (1.7-12.7); Neutrophils % 75.4 % (38.7-73.9); Platelet Count 198 T/CUMM (130-400); Red Blood Count 3.49 MC/CUMM (3.8-5.5); Red Cell Distribution Width 13.7 % (9.3-17.3); White Blood Count 11.9 T/CUMM (4-12)
[2021-11-02 05:34] LABS: Calcium 8.4 MG/DL (8.5-10.1); Potassium 4.3 MMOL/L (3.5-5.1)
[2021-11-02] MEDS: CHOLECALCIFEROL 1,000 UNIT TABLET PO SCH (08:38)
[2021-11-02] MEDS: SOTALOL 80 MG TABLET PO SCH (08:38)
[2021-11-02] MEDS: CALCIUM (CARBONATE) 500 MG TABLET PO SCH (08:38)
[2021-11-02] MEDS: GABAPENTIN 600 MG TABLET PO SCH (08:38)
[2021-11-02] MEDS: PANTOPRAZOLE 40 MG TABLET PO SCH (08:38)
[2021-11-02] MEDS: FINASTERIDE 5 MG TABLET PO SCH (08:38)
[2021-11-02] MEDS: DOCUSATE SODIUM 100 MG CAPSULE PO SCH (08:38)
[2021-11-02] MEDS: FERROUS SULFATE 325 MG TABLET PO SCH (08:38)
[2021-11-02] MEDS: DILTIAZEM CD 120 MG CAPSULE PO SCH (08:38)
[2021-11-02] MEDS: ASCORBIC ACID 500 MG TABLET PO SCH (08:38)
[2021-11-02] MEDS: TAMSULOSIN 0.4 MG CAPSULE PO SCH (08:38)
[2021-11-02] MEDS: FUROSEMIDE 40 MG TABLET PO SCH (08:39)
[2021-11-02] MEDS: NON-FORMULARY MEDICATION (Cyanocobalamin (Vitamin B-12) [Vitamin B-12] 1,000 MCG tablet) PO SCH (08:55)
[2021-11-02 12:25] VITALS: BP 109/71
== END 2021-11-02 14:00 | disposition swing bed (61) | DRG 481 ==
LOC: N.ED 10:20 → N.EDINP 13:06 → SUATTDRO 13:06 → N.3E 14:41
PROVIDERS: ADMIT Internal Medicine; ATTEND Family Medicine